=== PATIENT | female | born 1950 | race Caucasian/White ===

== ENCOUNTER 2016-03-29 07:15 | Inpatient (IN) | payer OTHER ==
[2016-04-05] MEDS ORDERED: ALBUMIN 5% 250 ML BOTTLE IV ONE ×2 (07:26→12:31)
[2016-04-05] MEDS ORDERED: DEXMEDETOMIDINE HCL 200 MCG/2 ML VIAL IV ONE (07:27)
[2016-04-05] MEDS ORDERED: BUPIVACAINE/EPI 0.25% 30 ML SDV ONE (07:57)
[2016-04-05] MEDS ORDERED: BACITRACIN 50,000 UNITS/10 ML SYR IRR ONE ×2 (07:57→12:36)
[2016-04-05] MEDS ORDERED: THROMBIN (RECOMBINANT) 20,000 UNIT VIAL TP ONE (07:57)
[2016-04-05] MEDS ORDERED: PROPOFOL/EMULSION 500 MG/50 ML BOTTLE IV ONE ×2 (08:27→13:15)
[2016-04-05] MEDS ORDERED: LR 1,000 ML IV ONE (09:28)
[2016-04-05] MEDS ORDERED: LIDOCAINE 1% 5 ML SDV ID PRN (09:28)
[2016-04-05] MEDS ORDERED: ceFAZolin 2 GM/DEXTROSE 100 ML IV ONE (09:30)
[2016-04-05 09:49] LABS: % IMMATURE GRANULYOCYTES 0.3 % (0.0-1.1); ABSOLUTE IMMATURE GRANULOCYTES 0.03 10^3/uL (0.00-0.10); ADD DIFF? NO; ADD MORPH? NO; ADD SCAN? NO; ATYPICAL LYMPHOCYTE FLAG 10 (0-99); FRAGMENT RBC FLAG 0 (0-99); HEMATOCRIT 39.5 % (38.0-47.0); LEFT SHIFT FLG 0 (0-99); LIPEMIA HEMOLYSIS FLAG 90 (0-99); MEAN CELL HEMOGLOBIN 31.4 pg (27.9-34.1); MEAN CELL HEMOGLOBIN CONCENTR. 35.4 g/dL (32.4-36.7); MEAN CELL VOLUME 88.6 fL (81.5-99.8); MEAN PLATELET VOLUME 9.2 fL (8.7-11.7); PLATELET CLUMPS FLAG 0 (0-99); PLATELET COUNT 349 10^3/uL (150-400); RED BLOOD CELL COUNT 4.46 10^6/uL (4.18-5.33); RED CELL DISTRIBUTION WIDTH 12.3 % (11.5-15.2)
[2016-04-05] MEDS ORDERED: MIDAZOLAM 2 MG/2 ML VIAL ONE (10:20)
[2016-04-05] MEDS ORDERED: fentaNYL 250 MCG/5 ML INJ ONE (10:21)
[2016-04-05] MEDS ORDERED: ACET/CAFFEINE/BUTA FIORICET 1 EACH TAB PO PRN (10:22)
[2016-04-05] MEDS ORDERED: LIDOCAINE 2% 5 ML SDV ONE (10:23)
[2016-04-05] MEDS ORDERED: ONDANSETRON 4 MG/2 ML VIAL ONE (10:23)
[2016-04-05] MEDS ORDERED: DEXAMETHASONE 4 MG/ML VIAL ONE (10:23)
[2016-04-05] MEDS ORDERED: ROCURONIUM 50 MG/5 ML VIAL ONE (10:23)
[2016-04-05] MEDS ORDERED: NEOSTIGMINE METHYLSULFATE 5 MG/5 ML SYR ONE (10:23)
[2016-04-05] MEDS ORDERED: GLYCOPYRROLATE 0.2 MG/1 ML VIAL ONE (10:23)
[2016-04-05] MEDS ORDERED: METOCLOPRAMIDE 10 MG/2 ML VIAL ONE (10:23)
[2016-04-05] MEDS ORDERED: HYDROmorphONE/DILAUDID 6 MG/30 ML PCA IV PRN (10:24)
[2016-04-05] MEDS ORDERED: ONDANSETRON DISINTEGRATING 4 MG TAB PO PRN (10:24)
[2016-04-05] MEDS ORDERED: MAGNESIUM HYDROXIDE 30 ML UDCUP PO PRN (10:24)
[2016-04-05] MEDS ORDERED: NALOXONE HCL 0.4 MG/ML INJ IVP PRN (10:24)
[2016-04-05] MEDS ORDERED: TEMAZEPAM 15 MG CAP PO PRN (10:24)
[2016-04-05] MEDS ORDERED: LACTULOSE 20 GM/30 ML UDCUP PO PRN (10:24)
[2016-04-05] MEDS ORDERED: ONDANSETRON 4 MG/2 ML VIAL IVP PRN (10:24)
[2016-04-05] MEDS ORDERED: DIAZEPAM 10 MG/2 ML SYR IVP PRN (10:24)
[2016-04-05] MEDS ORDERED: BISACODYL 10 MG SUPP PR PRN (10:24)
[2016-04-05] MEDS ORDERED: HYDROmorphONE/DILAUDID 1 MG/ML SYR IVP PRN (10:24)
[2016-04-05] MEDS ORDERED: CALCIUM CHLORIDE 1 GM/10 ML INJ ONE (11:52)
[2016-04-05] MEDS ORDERED: VASOPRESSIN 20 UNIT/ML VIAL ONE (11:56)
[2016-04-05] MEDS ORDERED: epHEDrine SULFATE 10 MG/ML SYR ONE ×2 (11:56)
[2016-04-05] MEDS ORDERED: DIAZEPAM 10 MG/2 ML SYR ONE ×2 (12:03→16:13)
[2016-04-05 12:33] LABS: BASE EXCESS -4.6 mEq/L (-2.5-2.5); BICARBONATE 20 mEq/L (22-26); MEASURED OXYGEN SATURATION 100 % (92-95); PCO2 35 mmHg (34-38); PO2 393 mmHg (65-75); TCO2 21 mEq/L (23-27)
[2016-04-05 12:45] LABS: BASE EXCESS -4.6 mEq/L (-2.5-2.5); BICARBONATE 20 mEq/L (22-26); MEASURED OXYGEN SATURATION 100 % (92-95); PCO2 35 mmHg (34-38); PO2 393 mmHg (65-75); TCO2 21 mEq/L (23-27)
[2016-04-05 12:49] LABS: HEMOGLOBIN ABG 11.1 gm/dL (12.3-15.9); SODIUM ABG 138 mEq/L (137-146)
[2016-04-05 12:50] LABS: IONIZED CALCIUM 1.69 MMOL/L (1.12-1.30)
[2016-04-05] MEDS ORDERED: SODIUM BICARBONATE 50 MEQ/50 ML SYR ONE (12:51)
[2016-04-05] MEDS ORDERED: POTASSIUM Cl (KCl) 10 MEQ/100 ML BAG IV ONE (12:54)
[2016-04-05 14:08] LABS: BASE EXCESS -0.8 mEq/L (-2.5-2.5); BICARBONATE 23 mEq/L (22-26); HEMOGLOBIN ABG 11.1 gm/dL (12.3-15.9); MEASURED OXYGEN SATURATION 100 % (92-95); PCO2 39 mmHg (34-38); PO2 361 mmHg (65-75); SODIUM ABG 140 mEq/L (137-146); TCO2 25 mEq/L (23-27)
--- NOTE | 2016-04-05 15:27 | SOAPPROG ---
SOAP Progress Note Assessment/Plan: Post Op Visit: S: Awake and alert. NAD. Pt with expected lower back pain O: AFVSS/PERRLA/EOMI no droop CN 2-12 grossly intact +lt touch 5/5 BUE/BLE = CDI VANESSA in place A/P: 66 yo female that is s/p TLIF L3-S1 -brace when out of bed -call with any questions or concerns -pt seen by Dr Pimentel as well -pt stable-no concerns from Dr Pimentel/Matt for floor status at this time 04/05/16 15:13 Objective: Laboratory Results 04/05/16 09:30 ICD10 Worksheet Patient Problems: Problems Problem Status Diagnosed Arthrodesis status Acute Lumbar radicular pain Acute Lumbar stenosis Acute - ICD10 Problem Qualifiers (1) Lumbar stenosis (2) Lumbar radicular pain (3) Arthrodesis status
[2016-04-05] MEDS ORDERED: fentaNYL 100 MCG/2 ML INJ ONE (15:37)
[2016-04-05 15:59] LABS: HEMATOCRIT 24.8 % (38.0-47.0); HEMOGLOBIN 8.6 g/dL (12.6-16.3)
--- NOTE | 2016-04-05 16:26 | DX ---
Intraoperative fluoroscopy History: Lumbar fusion. Comparison: MRI lumbar spine March 11, 2016. Findings: 2 intraoperative spot films are provided, showing bilateral transpedicular screw and dinorah fu maria r from L3 through S1 with L4 and L5 laminectomies. Intervertebral graft material is present at L3- L4, L4-L5 and L5-S1. 2 3-D spins were obtained. Fluoro time: 37 seconds. Dose: 27 mGy. Impression: Intraoperative fluoroscopy as above.
[2016-04-05 16:41] LABS: ANION GAP 10 mEq/L (8-16); CALCIUM 9.3 mg/dL (8.5-10.4); CARBON DIOXIDE 26 mEq/l (22-31); CHLORIDE 106 mEq/L (97-110); CREATININE 0.6 mg/dL (0.6-1.0); GLOMERULAR FILTRATION RATE > 60; GLUCOSE 176 mg/dL (70-100); POTASSIUM 3.7 mEq/L (3.5-5.2); SODIUM 142 mEq/L (134-144)
[2016-04-05] MEDS ORDERED: PANTOPRAZOLE SODIUM 40 MG TAB PO SCH (17:30)
[2016-04-05] MEDS ORDERED: NON-FORMULARY NEW DRUG (Omeprazole [Omeprazole] 40 MG) PO SCH (17:30)
[2016-04-05] MEDS: HYDROmorphONE/DILAUDID 2 MG TAB PO PRN ×2 (19:12→22:20)
[2016-04-05] MEDS: NS W/ 20 KCl/L 1,000 ML IV SCH (20:02)
[2016-04-05] MEDS: GABAPENTIN 300 MG CAP PO SCH (20:07)
[2016-04-05] MEDS: morphINE SR 15 MG TAB PO SCH (20:07)
[2016-04-05] MEDS: SENNOSIDES/DOCUSATE SODIUM TAB PO SCH (20:08)
[2016-04-05] MEDS ORDERED: DULoxetine 20 MG CAP PO SCH (21:00)
[2016-04-05] MEDS ORDERED: FAMOTIDINE 20 MG/NACL 50 ML IV SCH (21:00)
--- NOTE | 2016-04-05 21:02 | GOP ---
[f rep st] OPERATIVE REPORT DATE OF OPERATION: 04/05/2016 SURGEON: Quique Pimentel MD CAKE MIXER: Ricci Simms PA-C PREOPERATIVE DIAGNOSIS: 1. Lumbar instability with spondylolisthesis L4-5, L5-S1. 2. Severe lumbar stenosis L3-4, L4-5. 3. Severe foraminal stenosis L5-S1. 4. Bilateral lumbosacral radiculopathy, left greater than right. 5. Lumbar degenerative disk disease L3-4, L4-5, L5-S1. POSTOPERATIVE DIAGNOSIS: 1. Lumbar instability with spondylolisthesis L4-5, L5-S1. 2. Severe lumbar stenosis L3-4, L4-5. 3. Severe foraminal stenosis L5-S1. 4. Bilateral lumbosacral radiculopathy, left greater than right. 5. Lumbar degenerative disk disease L3-4, L4-5, L5-S1. PROCEDURE PERFORMED: Posterior, lateral and intervertebral arthrodesis with bilateral decompressions L3-4, L4-5 (95097, 11725), right L5-S1 hemilaminectomy with right-sided decompression and posterior, lateral and intervertebral arthrodesis L5-S1 (35309), placement of expandable biomechanical interver tebral device without anchors L3-4, L4-5, L5-S1 (98208 x3), microscope, same-incision bone graft harv est, spinal stereotaxy, posterior segmental instrumentation L3, L4, L5, S1. FINDINGS: ESTIMATED BLOOD LOSS: 250 cc. INDICATIONS: The patient is a 66-year-old with severe, relentless bilateral lumbosacral radiculopath y and back pain, who had an MRI that demonstrated spondylolisthesis L4-5, L5-S1, and severe stenosis at L3-4, L4-5, and severe foraminal stenosis L5-S1. I suggested an instrumented fusion with decompre ssion. She had some changes of stenosis at L2-3, but it was not sufficient to suggest surgery at pascale t level. The risk of screw and hardware malposition, malfunction, as well as fracture of the screw a nd hardware was discussed. She knew there was risk of bleeding, major vascular injury, nerve injury, spinal fluid leak, continued symptoms, pseudoarthrosis, as well as the possible need for future spin e surgery, including additional fusion surgery. She knew there was a chance that surgery would fail to give her any relief whatsoever and she wanted to proceed despite these risks. DESCRIPTION OF PROCEDURE: The patient was taken the operating room, placed in the supine position. General anesthesia was begun. She was flipped prone onto the Waldo table. Care was taken to pad a ll points of contact. Her back was sterilely prepped and draped in usual fashion. A localizing x-ra y was taken. We made a midline incision from the spinous process of L2 to S1. It was approximately 9 cm in length. The subcutaneous tissue was dissected using Bovie cautery down to the fascia and a s ubperiosteal dissection was made down to the lamina of L3, L4, L5, and the sacrum. A localizing x-ra y was taken. We removed and denuded the bilateral hypertrophic joints at L3-4, L4-5, L5-S1, preservi ng the L2-3 joints. We attached a Stealth reference frame to the spinous process, performed an O-arm spin, and using frameless Stealth stereotaxy, placed pedicle screws bilaterally at L3, L4, L5, and t he sacrum. The sacral screws were bicortical. They all stimulated at acceptable levels. An O-arm s pin was made confirming the position of all hardware. We took a 70 mm dinorah and cut off about 5 mm for the left-hand side and took an 80 mm dinorah for the right hand side. We placed the rods down over the screws, distraction at each level, got some reduction of the spondylolisthesis, particularly between L4 and L5, and then final tightened all the cap screws according to company specification. We then r emoved the supraspinous ligament from the inferior border of L3 all the way through the sacrum, and t hen removed all the soft tissue of the bone from the lamina at L3, L4, L5, and the sacrum. We then h arvested the L4 and L5 spinous process for autologous grafting purposes, as well as the inferior L3 s pinous process. We then drilled bilateral laminae at L3-4, L4-5, and a right olivia-lamina at L5-S1, a nd harvested this bone for autologous grafting purposes. Under the operating microscope, we performe d bilateral decompressions at L3-4 and L4-5 and there were severe stenosis with an hourglass appearan ce of the dura at each of these levels. L5-S1 did not have that appearance, but we performed a radic al right L5-S1 lateral recess decompression and removed the right L3-4, L4-5, L5-S1 facet joints and decompressed the exiting nerve roots at each level. There was significant stenosis at L4-5 and L5-S1 . A nice decompression of the exiting L4 and L5 nerves was obtained. Under the scope, we swept the thecal sac medially, and from a right-sided approach at each of these levels we removed the disk, the cartilaginous endplates, and roughened the subchondral bone to create arthrodesis at each level. We then sized each level with the trial and chose 7 x 23 mm devices based upon the sizing from the tria ls that were placed and a fluoroscopic images that we obtained. We then placed bone autograft and BM P into the disk space as well as into the implant, and inserted the implants under fluoroscopic junior nce, and then expanded them under fluoroscopic guidance, and this was done in a torque-limiting way, and we got a nice position of the implants within the intervertebral space. A final x-ray was taken, confirming the position of the hardware. We then decorticated all the remaining posterolateral bone bilaterally to create posterolateral arthrodesis, and followed this with BMP and bone autograft plac ed posterolaterally bilaterally. We used a grand total of 3.5 mg of BMP for the entire surgery. A c rosslink was applied. A subfascial drain was then placed. We then closed the fascia with interrupte d Vicryl sutures and placed Steri-Strips in the skin after closing Antonio fascia and the skin itself with interrupted Vicryl sutures. We had irrigated with large amounts of antibiotic saline throughout surgery. Several liters were used and blood loss had been minimal. There were no complications. T he patient had been placed on some degree of dopamine and then phenylephrine support for a marginally low blood pressure in the midportion of the procedure, but her vital signs remained stable throughou t. There were no complications. COMPLICATIONS: None. INSTRUMENTATION: [employer] pedicle screw instrumentation with 4.75 mm dinorah system, crosslinks, and Elevate cages. All the cages were 7 x 23 mm Elevate cages. /[id number]/MODL
[2016-04-05] MEDS: DULoxetine 20 MG CAP PO SCH (21:23)
[2016-04-05] MEDS: DIAZEPAM 5 MG TAB PO PRN (22:20)
[2016-04-06] MEDS: HYDROmorphONE/DILAUDID 2 MG TAB PO PRN ×3 (04:04→16:09)
[2016-04-06] MEDS: METHOCARBAMOL 750 MG TAB PO PRN (04:05)
[2016-04-06 05:04] LABS: % IMMATURE GRANULYOCYTES 0.5 % (0.0-1.1); ABSOLUTE IMMATURE GRANULOCYTES 0.06 10^3/uL (0.00-0.10); ADD DIFF? NO; ADD MORPH? NO; ADD SCAN? NO; ATYPICAL LYMPHOCYTE FLAG 10 (0-99); FRAGMENT RBC FLAG 0 (0-99); HEMATOCRIT 23.7 % (38.0-47.0); LEFT SHIFT FLG 50 (0-99); LIPEMIA HEMOLYSIS FLAG 90 (0-99); MEAN CELL HEMOGLOBIN 30.8 pg (27.9-34.1); MEAN CELL HEMOGLOBIN CONCENTR. 33.8 g/dL (32.4-36.7); MEAN CELL VOLUME 91.2 fL (81.5-99.8); MEAN PLATELET VOLUME 9.6 fL (8.7-11.7); PLATELET CLUMPS FLAG 0 (0-99); PLATELET COUNT 244 10^3/uL (150-400); RED CELL DISTRIBUTION WIDTH 12.4 % (11.5-15.2)
[2016-04-06 05:09] LABS: ANION GAP 9 mEq/L (8-16); CALCIUM 9.3 mg/dL (8.5-10.4); CARBON DIOXIDE 26 mEq/l (22-31); CHLORIDE 105 mEq/L (97-110); CREATININE 0.6 mg/dL (0.6-1.0); GLOMERULAR FILTRATION RATE > 60; GLUCOSE 129 mg/dL (70-100); POTASSIUM 4.3 mEq/L (3.5-5.2); SODIUM 140 mEq/L (134-144)
[2016-04-06] MEDS: ACETAMINOPHEN 325 MG TAB PO PRN (06:38)
--- NOTE | 2016-04-06 08:31 | NEUSURGPN ---
Assessment/Plan: S: Pain well managed. Is starting to get worse this morning. Tolerating pain medicines well. Able to ambulate. O: AFVSS no droop +lt touch 5/5 BUE/BLE = except for right leg hip flexion 4/5(this was the same preop) CDI VANESSA in place A/P: 66 yo female that is s/p TLIF L3-S1 -brace when out of bed -Optimize pain management- Adding MS contin for better long acting control. Valium, Dilaudid working well -Remove VANESSA -Postop x-rays pending -DVT: TEDS, SCDS, Lovenox ok on POD #2 -call with any questions or concerns -pt discussed with Dr. Pimentel Catheter Insertion Date: 04/05/16 - Physician Discussed Patient with : Margarito Neurosurgery Physical Exam - Vitals, I&O, Labs I and O 04/05/16 04/06/16 04/07/16 05:59 05:59 05:59 Intake Total 3740 Output Total 1235 475 Balance 2505 -475 Weight 58.06 kg Intake: Oral (ml) 480 IV Intake (ml) 2300 IV Infused (ml) 960 ceFAZolin 1 GM/DEXTROSE 100 50 ml @ 200 mls/hr IV Q8H JUAN FRANCISCO Rx#:[id number] NS W/ 20 KCl/L 1,000 ml @ 860 75 mls/hr IV CONT JUAN FRANCISCO Rx #:[id number] Output: Urine (ml) 1050 400 Catheter 1050 200 Bedside Commode 200 Wound Drainage (ml) 185 75 #1 Posterior Back Waldo 185 75 Ayala Other: Number of Voids Catheter 1 Vital Signs Temp Pulse Resp BP Pulse Ox 37.6 C 105 H 16 99/58 L 95 04/06/16 07:37 04/06/16 07:37 04/06/16 07:37 04/06/16 07:37 04/06/16 07:37 Laboratory Results 04/06/16 04:20 04/06/16 04:20 ICD10 Worksheet Patient Problems: Problems Problem Status Diagnosed Arthrodesis status Acute Lumbar radicular pain Acute Lumbar stenosis Acute
[2016-04-06] MEDS: SENNOSIDES/DOCUSATE SODIUM TAB PO SCH ×2 (08:38→21:07)
[2016-04-06] MEDS: morphINE SR 15 MG TAB PO SCH ×2 (08:38→21:06)
[2016-04-06] MEDS: FAMOTIDINE 20 MG TAB PO SCH ×2 (08:41→20:00)
[2016-04-06] MEDS: LIDOCAINE 5% 1 EA PATCH TD SCH (08:41)
[2016-04-06] MEDS ORDERED: METRONIDAZOLE 0.75 % 45 GEL TP SCH (09:00)
[2016-04-06] MEDS ORDERED: NS 500 ML IV ONE (12:30)
[2016-04-06 15:56] LABS: HEMATOCRIT 24.9 % (38.0-47.0); HEMOGLOBIN 8.5 g/dL (12.6-16.3)
[2016-04-06] MEDS: NS W/ 20 KCl/L 1,000 ML IV SCH (16:07)
[2016-04-06] MEDS: OMEPRAZOLE 40 MG PO SCH (16:19)
--- NOTE | 2016-04-06 18:38 | DX ---
Lumbar spine, 2 views HISTORY: Postoperative surgery. FINDINGS: Bilateral transpedicular screws and fusion rods at the L3, L4, L5 and S1 levels with interb jong disk prosthesis. Posterior paraspinal drain. Hardware appears intact. Mild degenerative disk disease at L2-L3 with minimal retrolisthesis. Mild compression deformity of th e T12 vertebral body with associated moderate degenerative disk disease at T11-T12, similar to the pr evious study. IMPRESSION: L3 through S1 diskectomies and posterior fusion hardware.
[2016-04-06] MEDS: GABAPENTIN 300 MG CAP PO SCH (21:06)
[2016-04-06] MEDS: DIAZEPAM 5 MG TAB PO PRN (21:07)
[2016-04-06] MEDS: METRONIDAZOLE 0.75 % 45 GEL TP SCH (21:08)
[2016-04-06] MEDS: DULoxetine 20 MG CAP PO SCH (21:09)
[2016-04-07] MEDS: ACETAMINOPHEN 325 MG TAB PO PRN ×2 (04:54→14:53)
--- NOTE | 2016-04-07 08:05 | NEUSURGPN ---
Date of Surgery: 04/05/16 Post Op Day: 2 Assessment/Plan: Assessment: 66 yo female that is s/p TLIF L3-S1 POD #2 Plan: -pain better controlled -sitting in a chair -PT/OT -H/H low yesterday-pt is still hypotensive. She is not dizzy/lightheaded with standing -will check some labs this am -post op xrays look good -VANESSA removed intact -dressing changed -brace when out of bed -call with any questions or concerns -pt seen by Dr Pimentel as well 04/05/16 15:13 Subjective: Awake and alert. NAD. Eating/drinking and voiding. No f/c/n/v/d. No live/neck/ chest/abd or gu complaints. Objective: AFVSS/PERRLA/EOMI no droop CN 2-12 grossly intact +lt touch 5/5 BUE/BLE = CDI VANESSA removed intact Neuro Check Frequency: per routine Urinary Catheter in Place: No Catheter Insertion Date: 04/05/16 - Physician Discussed Patient with : Margarito Patient Seen by : Margarito Neurosurgery Physical Exam - Vitals, I&O, Labs I and O 04/06/16 04/07/16 04/08/16 05:59 05:59 05:59 Intake Total 3740 1150 Output Total 1235 800 Balance 2505 350 Weight 58.06 kg Intake: Oral (ml) 480 350 IV Intake (ml) 2300 500 IV Infused (ml) 960 300 ceFAZolin 1 GM/DEXTROSE 100 50 ml @ 200 mls/hr IV Q8H JUAN FRANCISCO Rx#:[id number] NS W/ 20 KCl/L 1,000 ml @ 860 300 75 mls/hr IV CONT JUAN FRANCISCO Rx #:[id number] Output: Urine (ml) 1050 400 Catheter 1050 200 Bedside Commode 200 Wound Drainage (ml) 185 400 #1 Posterior Back Waldo 185 400 Ayala Other: Number of Voids Catheter 1 Toilet 4 Vital Signs Temp Pulse Resp BP Pulse Ox 36.6 C 86 14 81/52 L 96 04/07/16 07:42 04/07/16 07:42 04/07/16 07:42 04/07/16 07:42 04/07/16 07:42 Laboratory Results 04/06/16 15:45 04/06/16 04:20 ICD10 Worksheet Patient Problems: Problems Problem Status Diagnosed Arthrodesis status Acute Lumbar radicular pain Acute Lumbar stenosis Acute - ICD10 Problem Qualifiers (1) Lumbar stenosis (2) Lumbar radicular pain (3) Arthrodesis status
[2016-04-07] MEDS: NS W/ 20 KCl/L 1,000 ML IV SCH (08:20)
[2016-04-07] MEDS: POLYETHYLENE GLYCOL 3350 17 GM PKT PO PRN (08:41)
[2016-04-07] MEDS: SENNOSIDES/DOCUSATE SODIUM TAB PO SCH ×2 (08:41→20:20)
[2016-04-07] MEDS: FAMOTIDINE 20 MG TAB PO SCH ×2 (08:41→20:20)
[2016-04-07] MEDS: morphINE SR 15 MG TAB PO SCH ×2 (08:42→20:20)
[2016-04-07] MEDS: LIDOCAINE 5% 1 EA PATCH TD SCH (08:57)
[2016-04-07 09:21] LABS: HEMATOCRIT 24.4 % (38.0-47.0); HEMOGLOBIN 8.1 g/dL (12.6-16.3); MEAN CELL HEMOGLOBIN 30.3 pg (27.9-34.1); MEAN CELL HEMOGLOBIN CONCENTR. 33.2 g/dL (32.4-36.7); MEAN CELL VOLUME 91.4 fL (81.5-99.8); RED BLOOD CELL COUNT 2.67 10^6/uL (4.18-5.33); RED CELL DISTRIBUTION WIDTH 12.7 % (11.5-15.2)
[2016-04-07 09:45] LABS: ANION GAP 8 mEq/L (8-16); CALCIUM 8.3 mg/dL (8.5-10.4); CARBON DIOXIDE 26 mEq/l (22-31); CHLORIDE 106 mEq/L (97-110); CREATININE 0.6 mg/dL (0.6-1.0); GLOMERULAR FILTRATION RATE > 60; GLUCOSE 107 mg/dL (70-100); POTASSIUM 4.1 mEq/L (3.5-5.2); SODIUM 140 mEq/L (134-144)
[2016-04-07] MEDS: ACETAMINOPHEN/CODEINE 300/30MG TAB PO SCH ×3 (13:09→23:14)
[2016-04-07] MEDS: HYDROmorphONE/DILAUDID 2 MG TAB PO PRN (17:50)
[2016-04-07] MEDS: OMEPRAZOLE 40 MG PO SCH (17:50)
[2016-04-07] MEDS: DULoxetine 20 MG CAP PO SCH (20:19)
[2016-04-07] MEDS: GABAPENTIN 300 MG CAP PO SCH (20:20)
[2016-04-07] MEDS: METRONIDAZOLE 0.75 % 45 GEL TP SCH (20:22)
[2016-04-08] MEDS: HYDROmorphONE/DILAUDID 2 MG TAB PO PRN (02:27)
[2016-04-08] MEDS: ACETAMINOPHEN/CODEINE 300/30MG TAB PO SCH ×3 (05:16→16:36)
--- NOTE | 2016-04-08 07:49 | NEUSURGPN ---
Assessment/Plan: Assessment: 66 yo female that is s/p TLIF L3-S1 POD #3 Plan: -pain better controlled- Will also try Robaxin- if this does not work, can try 2 /5mg Valium. Tylenol 3 also working well for breakthrough along with baseline MS Contin -PT/OT- continue work with therapies today, try and do stairs -gave 1 unit PRBC yesterday, pt's BP low today, but ok and patient asymptomatic -post op xrays look good -brace when out of bed -Dispo- Plan on dc tomorrow if cleared by therapies, pain well managed -call with any questions or concerns -pt seen by Dr Pimentel as well Subjective: Patient doing well. Still not ready to go home. Pain a little better controlled on Tylenol 3 maybe, wants to also try muscle relaxants as well to see if they help more. Right leg with some burning when laying on her back. Able to get up with PT but hasn't done stairs yet. No dizziness when standing. Objective: AFVSS, mild hypotension this morning 102/74 BUE/BLE 5/5= Sensation intact ot lt touch Incision c/d/i Catheter Insertion Date: 04/05/16 - Physician Discussed Patient with .: Margarito Patient Seen by : Margarito Neurosurgery Physical Exam - Vitals, I&O, Labs I and O 04/07/16 04/08/16 04/09/16 05:59 05:59 05:59 Intake Total 1150 1500 Output Total 800 Balance 350 1500 Intake: Oral (ml) 350 850 IV Intake (ml) 500 IV Infused (ml) 300 300 NS W/ 20 KCl/L 1,000 ml @ 300 300 75 mls/hr IV CONT JUAN FRANCISCO Rx #:[id number] Packed Red Blood Cells ( 350 ml) Output: Urine (ml) 400 Catheter 200 Bedside Commode 200 Wound Drainage (ml) 400 #1 Posterior Back Waldo 400 Ayala Other: Number of Voids Toilet 4 1 Vital Signs Temp Pulse Resp BP Pulse Ox 37.3 C 103 H 16 102/74 90 L 04/08/16 05:55 04/08/16 05:05 04/08/16 05:05 04/08/16 05:05 04/08/16 05:05 Laboratory Results 04/07/16 08:55 04/07/16 08:55 ICD10 Worksheet Patient Problems: Problems Problem Status Diagnosed Arthrodesis status Acute Lumbar radicular pain Acute Lumbar stenosis Acute
[2016-04-08] MEDS: morphINE SR 15 MG TAB PO SCH ×2 (08:26→21:19)
[2016-04-08] MEDS: ENOXAPARIN 40 MG/0.4 ML SYR SC SCH (08:26)
[2016-04-08] MEDS: LIDOCAINE 5% 1 EA PATCH TD SCH (08:27)
[2016-04-08] MEDS: SENNOSIDES/DOCUSATE SODIUM TAB PO SCH ×2 (08:27→21:14)
[2016-04-08] MEDS: FAMOTIDINE 20 MG TAB PO SCH ×2 (08:27→21:15)
[2016-04-08] MEDS: METHOCARBAMOL 750 MG TAB PO PRN ×2 (08:27→16:36)
[2016-04-08] MEDS: POLYETHYLENE GLYCOL 3350 17 GM PKT PO PRN (08:27)
[2016-04-08] MEDS: OMEPRAZOLE 40 MG PO SCH (16:39)
[2016-04-08] MEDS: diphenhydrAMINE 25 MG CAP PO PRN (17:40)
[2016-04-08] MEDS: GABAPENTIN 300 MG CAP PO SCH (21:14)
[2016-04-08] MEDS: METRONIDAZOLE 0.75 % 45 GEL TP SCH (21:14)
[2016-04-08] MEDS: DULoxetine 20 MG CAP PO SCH (21:14)
[2016-04-09] MEDS: ACETAMINOPHEN/CODEINE 300/30MG TAB PO SCH ×3 (00:02→12:00)
[2016-04-09 03:10] VITALS: O2SAT 94
[2016-04-09] MEDS: HYDROmorphONE/DILAUDID 2 MG TAB PO PRN (03:11)
[2016-04-09] MEDS: diphenhydrAMINE 25 MG CAP PO PRN (03:11)
[2016-04-09] MEDS: FAMOTIDINE 20 MG TAB PO SCH (07:57)
[2016-04-09] MEDS: SENNOSIDES/DOCUSATE SODIUM TAB PO SCH (07:57)
[2016-04-09] MEDS: morphINE SR 15 MG TAB PO SCH (07:57)
[2016-04-09] MEDS: ENOXAPARIN 40 MG/0.4 ML SYR SC SCH (07:57)
[2016-04-09 08:07] VITALS: BP 95/64; PULSE 87; RESP 16; TEMP 98.6
[2016-04-09] MEDS: POLYETHYLENE GLYCOL 3350 17 GM PKT PO PRN (08:09)
[2016-04-09] MEDS: LIDOCAINE 5% 1 EA PATCH TD SCH ×2 (08:11→12:50)
--- NOTE | 2016-04-09 10:10 | PDIAF ---
- Diagnosis Diagnosis: L3-S1 fusion for DJD/stenosis Code Status: Full Code - Medication Management Discharge Medications: Medications to Continue on Transfer Acet/Caffeine/Buta Fioricet [Fioricet (*)] 2 each PO DAILY PRN 02/20/16 [Last Taken 09/12/15] Acetaminophen [Tylenol Arthritis] 650 mg PO DAILY PRN 02/20/16 [Last Taken 04/04 14:00] Ascorbic Acid [Vitamin C 500 mg (*)] 500 - 1,000 mg PO DAILY 02/20/16 [Last Taken 03/22/16] Cholecalciferol Vit D3 [Vitamin D3 2000 units tab (OTC)] 5,000 units PO DAILY [Last Taken 03/22/16] Duloxetine HCl [Cymbalta] 5 mg PO HS 02/20/16 [Last Taken 04/04/16 20:00] Gabapentin [Neurontin 300 MG (*)] 300 mg PO HS 02/20/16 [Last Taken 04/04/16 20: 00] Lidocaine 5% [Lidoderm 5% Patch (*)] 1 ea TD DAILY 02/20/16 [Last Taken 04/04/16 ] Omeprazole 40 mg PO DAILY@1730 02/20/16 [Last Taken 04/04/16 20:00] metroNIDAZOLE 0.75 % [Metrogel 0.75% Topical Gel (RX)] 1 farnaz TP DAILY 02/20/16 [ Last Taken 04/04/16 20:00] Acetaminophen/Codeine 300/30Mg [Tylenol #3 (*)] 1 each PO Q6 04/05/16 [Last Taken 04/04/16 20:00] Discharge Medications: Refer to the Discharge Home Medication list for PRN reason. - Orders Services needed: Certified Sales Donor Recruitment Representative, Physical Therapy, Occupational Therapy Diet Recommendation: no restrictions on diet Diet Texture: Regular Texture Diet Wound Care Instructions: keep clean and dry. Steri strips to be removed at post op appt. Activity/Weight Bearing Restrictions: as tolerated in brace. no bending, twising or lifting over 10 lbs x 6 weeks Equipment: Lumbar Brace - Follow Up Care Current Providers and Referrals: Dave Sal MD [Primary Care Provider] -
--- NOTE | 2016-04-09 10:15 | NEUSURGPN ---
Date of Surgery: 04/05/16 Post Op Day: 4 Assessment/Plan: 66 yo female that is s/p TLIF L3-S1 POD #4 Plan: -pain controlled well today -PT/OT- has seen and recommend home PT/OT and EXTENSION SERVICE SPECIALIST IN CHARGE -post op xrays look good -brace when out of bed -Dispo- Plan on dc today -call with any questions or concerns Subjective: out of bed in chair. Ambulating with walker pain controlled ongoing right DF weakness Objective: Neuro: [place], sens +LT. right DF weakness 5-/5 Ambulates with walker Incision: CDI No VANESSA Urinary Catheter in Place: No Catheter Insertion Date: 04/05/16 Neurosurgery Physical Exam - Vitals, I&O, Labs I and O 04/08/16 04/09/16 04/10/16 05:59 05:59 05:59 Intake Total 1500 2400 Output Total 550 Balance 1500 1850 Intake: Oral (ml) 850 2400 IV Infused (ml) 300 NS W/ 20 KCl/L 1,000 ml @ 300 75 mls/hr IV CONT JUAN FRANCISCO Rx #:[id number] Packed Red Blood Cells ( 350 ml) Output: Urine (ml) 550 Toilet 550 Other: Number of Voids Toilet 1 2 Vital Signs Temp Pulse Resp BP Pulse Ox 37 C 87 16 95/64 L 94 04/09/16 08:00 04/09/16 08:00 04/09/16 08:00 04/09/16 08:00 04/09/16 08:00 Laboratory Results 04/07/16 08:55 04/07/16 08:55 ICD10 Worksheet Patient Problems: Problems Problem Status Diagnosed Arthrodesis status Acute Lumbar radicular pain Acute Lumbar stenosis Acute
--- NOTE | 2016-05-04 17:44 | GDS ---
[f rep st] DISCHARGE SUMMARY PRIMARY DIAGNOSES: 1. Lumbar instability with spondylolisthesis L4-5, L5-S1. 2. Severe lumbar stenosis, L3-4, L4-5. 3. Severe foraminal stenosis, L5-S1. 4. Bilateral lumbosacral radiculopathy, left greater than right. 5. Lumbar degenerative disk disease, L3-4, L4-5, L5-S1. OPERATIONS/PROCEDURES: Posterior lateral intervertebral arthrodesis with bilateral decompressions a t L3-4, L4-5; right L5-S1 hemilaminectomy with right-sided decompression and posterior lateral inter vertebral arthrodesis at L5-S1; placement of expandable biomechanical intervertebral device without anchors at L3-4, L4-5, L5-S1; use of microscope same incision bone graft harvest, posterior segmenta l instrumentation at L3, L4, L5, and S1. HOSPITAL COURSE: Delma is a 66-year-old female who had severe relentless bilateral lumbosacral radiculopathy and back pain, who had an MRI that demonstrated spondylolisthesis at L4-5, L5-S1 and s evere stenosis at L3-4, L4-5 and severe foraminal stenosis at L5-S1. A suggestion for an instrument ed fusion and decompression was given. She understood these risks and wished to proceed. The patie nt underwent the above-mentioned procedure and tolerated it well. She was seen postoperative day 1. X-rays were ordered on 04/06/2016 of the lumbar spine as routine followup which showed L3-S1 diske ctomies and posterior fusion that was noted. The patient was seen on a daily basis. On 04/09/2016, she met criteria for discharge. Her pain was well controlled. She was sent home with home [facility] PT and OT and SWATCHER. Postoperative x-rays were reviewed with the patient as well as Dr. Pimentel. T he patient was fit for a custom LSO brace that she will wear whenever out of bed. The patient met lyly puente and was discharged home without incident. CONSULTS: None. COMPLICATIONS: None. DISCHARGE CONDITION: Stable and improved. DISCHARGE INSTRUCTIONS: Standard discharge instructions given to patient following instrumented lum bar fusion. She was instructed no bending, twisting, or lifting. She should avoid any anti-inflamm atory drugs. She will wear a lumbar corset brace for approximately 8 weeks and likely will need a b one stimulator for approximately 3 months. We will see her at 2 weeks for a postop visit and then bernardo urena at 2 months, 3-6 months, 9 months to a year, a year and a half and 2 years with x-rays when cl inically appropriate. All questions and concerns were answered. She understands and agrees. /[id number]/MODL
== END 2016-04-09 14:27 | disposition home health service (06) | DRG 460 ==
LOC: F3N 04-05 08:36
PROVIDERS: ADMIT Neurological Surgery; ATTEND Neurological Surgery
PROC: 3E0U0GB Introduction of Recombinant Bone Morphogenetic Protein into Joints, Open Approach (ICD-10-PCS; principal; 2016-04-05 10:30)
PROC: 0SG10AJ Fusion of 2 or more Lumbar Vertebral Joints with Interbody Fusion Device, Posterior Approach, Anterior Column, Open Approach (ICD-10-PCS; principal; 2016-04-05 10:30)
PROC: 01NB0ZZ Release Lumbar Nerve, Open Approach (ICD-10-PCS; principal; 2016-04-05 10:30)
PROC: 0QB00ZZ Excision of Lumbar Vertebra, Open Approach (ICD-10-PCS; principal; 2016-04-05 10:30)
PROC: 30233N1 Transfusion of Nonautologous Red Blood Cells into Peripheral Vein, Percutaneous Approach (ICD-10-PCS; principal; 2016-04-05 10:30)
DX: M48.06 Spinal stenosis, lumbar region (principal); M51.36 Other intervertebral disc degeneration, lumbar region; M43.16 Spondylolisthesis, lumbar region
CPT/HCPCS: 97116-GP; 97161-GP; 97165-GO; 97530-GP; 97535-GO; C1713; J0690; J1100; J1265; J1650; J2250; J2405; J2704; J2710; J2765; J3010; P9016; P9041

== ENCOUNTER → 2016-05-26 | Outpatient (CLI) | payer OTHER | LOC: FIMAGING 13:33 | PROVIDERS: ATTEND Physician Assistant | DX: Z09 Encounter for follow-up examination after completed treatment for conditions other than malignant neoplasm (principal); Z98.1 Arthrodesis status ==

== ENCOUNTER → 2016-06-18 | Outpatient (CLI) | payer OTHER | LOC: FIMAGING 07:03 | PROVIDERS: ATTEND Physician Assistant | DX: M54.5 Low back pain (principal); Z98.1 Arthrodesis status ==

== ENCOUNTER → 2016-08-03 | Outpatient (CLI) | payer OTHER | LOC: FIMAGING 07:24 | PROVIDERS: ATTEND Physician Assistant | DX: Z98.1 Arthrodesis status (principal); M51.44 Schmorl's nodes, thoracic region ==

== ENCOUNTER → 2016-12-16 | Outpatient (CLI) | payer OTHER | LOC: FIMAGING 07:43 | PROVIDERS: ATTEND Physician Assistant | DX: Z09 Encounter for follow-up examination after completed treatment for conditions other than malignant neoplasm (principal); Z98.1 Arthrodesis status ==

== ENCOUNTER → 2016-12-21 | Outpatient (CLI) | payer OTHER | LOC: FIMAGING 08:55 | PROVIDERS: ATTEND Family Medicine Sports Medicine | DX: Z12.31 Encounter for screening mammogram for malignant neoplasm of breast (principal) | CPT/HCPCS: G0202 ==

== ENCOUNTER → 2017-01-03 | Outpatient (CLI) | payer OTHER | LOC: FIMAGING 10:13 | PROVIDERS: ATTEND Family Medicine Sports Medicine | DX: Z13.820 Encounter for screening for osteoporosis (principal); M81.0 Age-related osteoporosis without current pathological fracture; Z78.0 Asymptomatic menopausal state ==

== ENCOUNTER 2017-01-18 07:09 | Day surgery (SDC) | payer OTHER ==
[2017-01-18] MEDS ORDERED: FAMOTIDINE 20 MG TAB PO ONE (07:11)
[2017-01-18] MEDS ORDERED: DIAZEPAM 5 MG TAB PO ONE (07:11)
[2017-01-18] MEDS ORDERED: NS 1,000 ML IV ONE (07:11)
[2017-01-18] MEDS ORDERED: diphenhydrAMINE 25 MG CAP PO ONE ×2 (07:11→07:43)
[2017-01-18] MEDS ORDERED: ASPIRIN EC 325 MG TAB PO ONE ×2 (07:11→07:44)
--- NOTE | 2017-01-18 07:40 | CPEKG ---
Heart Rate: 76 RR Interval: 789 P-R Interval: 164 QRSD Interval: 86 QT Interval: 380 QTC Interval: 428 P [place]: 69 QRS [place]: 50 T Wave [place]: 44 EKG Severity - NORMAL ECG - EKG Impression: SINUS RHYTHM Electronically Signed By: Dae Goddard 18-Jan-2017 10:41:29
--- NOTE | 2017-01-18 07:40 | CPEKG ---
Heart Rate: 76 RR Interval: 789 P-R Interval: 164 QRSD Interval: 86 QT Interval: 380 QTC Interval: 428 P [place]: 69 QRS [place]: 50 T Wave [place]: 44 EKG Severity - NORMAL ECG - EKG Impression: SINUS RHYTHM Electronically Signed By: aDe Goddard 18-Jan-2017 10:41:29
--- NOTE | 2017-01-18 07:40 | CPEKG ---
Heart Rate: 76 RR Interval: 789 P-R Interval: 164 QRSD Interval: 86 QT Interval: 380 QTC Interval: 428 P [place]: 69 QRS [place]: 50 T Wave Echo: 44 EKG Severity - NORMAL ECG - EKG Impression: SINUS RHYTHM Electronically Signed By: Dae Goddard 18-Jan-2017 10:41:29
[2017-01-18] MEDS ORDERED: DIAZEPAM 5 MG TAB ONE (07:44)
[2017-01-18] MEDS ORDERED: FAMOTIDINE 20 MG TAB ONE (07:44)
[2017-01-18 07:53] LABS: PLATELET COUNT 329 10^3/uL (150-400)
[2017-01-18 08:03] LABS: INR 0.94 (0.83-1.16); PROTIME(PATIENT) 12.5 SEC (12.0-15.0)
[2017-01-18] MEDS ORDERED: fentaNYL 100 MCG/2 ML INJ ONE (08:14)
[2017-01-18] MEDS ORDERED: LIDOCAINE 1% 300 MG/30 ML SDV ONE (08:14)
[2017-01-18] MEDS ORDERED: HEPARIN 10,000 UNIT/10 ML MDV ONE (08:14)
[2017-01-18] MEDS ORDERED: MIDAZOLAM 2 MG/2 ML VIAL ONE (08:14)
[2017-01-18] MEDS ORDERED: VERAPAMIL 5 MG/2 ML VIAL ONE (08:14)
[2017-01-18] MEDS ORDERED: IOPAMIDOL (ISOVUE-370) 150 ML BTL IV ONE (08:15)
--- NOTE | 2017-01-18 08:33 | PDPROPOC ---
Sedation Plan of Care Sedation Plan of Care: vital signs stable ASA Classification: ASA 2 Planned drugs: fentanyl, midazolam Mallampati Score: Class 2 Mallampati Reference Image: Patient passed 3-3-2 rule?: Yes
--- NOTE | 2017-01-18 08:33 | PDHPUP ---
History & Physical Update H&P update statement: This history and physical update is based on an assessment of the patient which was completed after admission or registration (within 24 hours), but prior to the surgery/procedure. H&P update: H&P reviewed & patient examined, no change in patient's condition since H&P completed
--- NOTE | 2017-01-18 09:48 | PDDXCAT ---
Diagnostic Cath Note - . Date: 01/18/17 Industrial Refrigeration Mechanic: Daryl Indication: other (moderate risk stress test, Class II angina) - Procedure Access: right wrist Procedure: left heart catheterization, coronary angiography, left ventriculogram - Materials Left Heart Cath size: 5F Left Heart Cath materials: JL3.5, JL4.0, pigtail - Findings-Left Heart Catheterization LM: distal LM 30% stenosis LAD: LAD proper without significant CAD. OStial diagonal1 with 80% stenosis, reconstitution of flow in distal D1. Collateral from distal LAD to D1 LCX: LCX ostial 30%. Large branching OM1 with small branches diffusely diseased RCA: dominant. No sig disease LVEF: 70 Wall motion: normal Estimated blood loss: <50ml Closure method: TR Band Assessment: significant D1 disease. PCI would likely involve LAD as well. Normal LVEF. Plan: INterventional consult: PCI of diag would involve LAD intervention which could potentially compromise LAD. plan for intesified medical management of diag lesion. If recurrent symptoms, consider PCI Patient Problems: Problems Problem Status Onset Arthrodesis status Acute Lumbar radicular pain Acute Lumbar stenosis Acute
[2017-01-18] MEDS ORDERED: NITROGLYCERIN 0.4 MG BTL SL PRN (09:50)
[2017-01-18] MEDS ORDERED: ATROPINE SULFATE 1 MG/10 ML SYR IVP PRN (09:50)
[2017-01-18] MEDS ORDERED: ONDANSETRON 4 MG/2 ML VIAL IVP PRN (09:50)
== END 2017-01-18 15:00 | disposition home or self-care (01) ==
LOC: FCATH 07:09
PROVIDERS: ATTEND Internal Medicine Cardiovascular Disease
PROC: 4A023N7 Measurement of Cardiac Sampling and Pressure, Left Heart, Percutaneous Approach (ICD-10-PCS; principal; 2017-01-18)
PROC: B2151ZZ Fluoroscopy of Left Heart using Low Osmolar Contrast (ICD-10-PCS; principal; 2017-01-18)
PROC: B2111ZZ Fluoroscopy of Multiple Coronary Arteries using Low Osmolar Contrast (ICD-10-PCS; principal; 2017-01-18)
DX: I25.10 Atherosclerotic heart disease of native coronary artery without angina pectoris (principal); R94.39 Abnormal result of other cardiovascular function study
CPT/HCPCS: J1644; J2250; J3010; Q9967

== ENCOUNTER → 2018-01-27 | Outpatient (CLI) | payer OTHER, MEDICARE | LOC: FIMAGING 09:13 | PROVIDERS: ATTEND Internal Medicine | DX: Z12.31 Encounter for screening mammogram for malignant neoplasm of breast (principal) ==

== ENCOUNTER → 2018-05-17 | Outpatient (CLI) | payer OTHER, MEDICARE | LOC: FIMAGING 15:17 → EDSTATUS 15:23 | PROVIDERS: ATTEND Physician Assistant | DX: M51.37 Other intervertebral disc degeneration, lumbosacral region (principal); Z98.1 Arthrodesis status ==